=== PATIENT | female | born 1955 | race Caucasian/White ===

== ENCOUNTER 2017-03-17 11:05 | Emergency (ER) | payer OTHER ==
[~2017-03-17] VITALS: Ht 165.1 cm; Wt 94.0 kg
[~2017-03-17 11:05] MED LIST: DICL75 PO; ESCI20TA PO; GABA600T PO; LORTA10 PO; METF-324 PO; OMEP20TA39 PO; PRAM0.12 PO; PRAV80 PO; TRAZ100 PO; ZOLO50TA PO
[2017-03-17 11:06] VITALS: BP 140/80; PULSE 80; RESP 24; TEMP 97.7; O2SAT 96
--- NOTE | 2017-03-17 11:40 | PD ---
HPI Chief Complaint: Fall Time Seen by Provider: 11:37 Travel History International Travel<30 days: No Contact w/Intl Traveler<30days: No Traveled to known affect area: No History of Present Illness HPI 62-year-old female that presents to the ED for evaluation of trip and fall. Per patient she was on a treadmill today and she went faster than she thought she was going and she fell. Per patient she hit her right side of the face and right ribs. She did not lose consciousness. She denies any arm pain or leg pain. No back pain. No prior injuries to this area. She does not take any blood thinners. Denies any numbness, tilling, weakness. No blurry vision or double vision. Pain per patient is 8 out of 10. No allergies to medication. Hasn't seen anybody for this. Injury occurred about 2 hours ago. Per patient most of the pain is on the face. Pain in the ribs is reproducible with touch as well as with deep breaths. No cough or runny nose. No fevers chills or sweats. Patient does have a history of chronic pain for which she takes Lortab. PFSH Past Medical History High Cholesterol: Yes Diabetes: Yes Patient Takes Glucophage: Yes (METFORMIN) : 3 Para: 3 Ovarian Cysts: Yes Past Surgical History Abdominal Surgery: Yes (HERNIA REPAIR ) Cholecystectomy: Yes Social History Alcohol Use: No Tobacco Use: No Substance Use: No Allergies-Medications (Allergen,Severity, Reaction): Coded Allergies: No Known Allergies (Unverified , 03/17/17) Reported Meds & Prescriptions Reported Meds & Active Scripts Active Zoloft (Sertraline HCl) 50 Mg Tab 50 Mg PO DAILY 30 Days Diclofenac Sodium 75 Mg Tab 75 Mg PO BID PRN Reported Gabapentin 600 Mg Tab 600 Mg PO TID Pravachol 80 Mg Tab (Pravastatin Sod) 80 Mg Tab 80 Mg PO DAILY Trazodone Hcl (Trazodone HCl) 100 Mg Tab 100 Mg PO HS Escitalopram Oxalate 20 Mg Tab 20 Mg PO DAILY Pramipexole Dihydrochlori (Pramipexole Dihydrochloride) 0.125 Mg Tab 0.125 Mg PO HS Hm Omeprazole (Omeprazole) 20 Mg Tab 40 Mg PO DAILY Metformin HCl ER (Metformin HCl) 1,000 Mg Tab 1,000 Mg PO BID Lortab 10/325 Tab (Hydrocodone-Acetaminophen) 10 Mg/325 Mg Tab 1 Tab PO Q4H PRN Review of Systems Except as stated in HPI: all other systems reviewed are Neg Physical Exam Narrative GENERAL: SKIN: Warm and dry. HEAD: Atraumatic. Normocephalic. Swelling and bruising noted on the right side of the face. EYES: Pupils equal and round 4 mm reactive to light and accommodation. No scleral icterus. No injection or drainage. ENT: No nasal bleeding or discharge. Mucous membranes pink and moist. Tongue is midline. No uvula deviation. NECK: Trachea midline. No JVD. CARDIOVASCULAR: Regular rate and rhythm. RESPIRATORY: No accessory muscle use. Clear to auscultation. Breath sounds equal bilaterally. GASTROINTESTINAL: Abdomen soft, non-tender, nondistended. Hepatic and splenic margins not palpable. MUSCULOSKELETAL: Extremities without clubbing, cyanosis, or edema. No obvious deformities. Full range of motion of the upper and lower extremities bilaterally. 2+ pulses bilaterally. No cervical, thoracic, lumbar spine tenderness to palpation. Full range of motion lower extremities straight leg test negative. Sensation intact bilaterally. Patient does have reproducible pain on the right ribs. NEUROLOGICAL: Awake and alert. No obvious cranial nerve deficits. Motor grossly within normal limits. Five out of 5 muscle strength in the arms and legs. Normal speech. PSYCHIATRIC: Appropriate mood and affect; insight and judgment normal. Data Data Last Documented VS Vital Signs Date Time Temp Pulse Resp B/P Pulse Ox O2 Delivery O2 Flow Rate FiO2 03/17/17 13:27 78 20 124/59 94 Room Air 03/17/17 11:[address] Brain W/O Iv Contrast(Rout) (03/17/17 11:35) Ct Facial Bones W/O Iv Cont (03/17/17 11:35) Ribs, Uni (W/Exp Cxr-Min 3vw) (03/17/17 11:35) Morphine Inj (Morphine Inj) (03/17/17 11:45) Ondansetron Inj (Zofran Inj) (03/17/17 11:45) Morphine Inj (Morphine Inj) (03/17/17 11:45) Ondansetron Inj (Zofran Inj) (03/17/17 11:45) Hydromorphone Pf Inj (Dilaudid Pf Inj) (03/17/17 13:15) Ketorolac Inj (Toradol Inj) (03/17/17 13:15) Splint Or Brace Apply/Monitor (03/17/17 13:17) Propofol 200 Mg/20 Ml Inj (Diprivan 200 (03/17/17 13:30) MDM Medical Decision Making Medical Screen Exam Complete: Yes Emergency Medical Condition: Yes Medical Record Reviewed: Yes Interpretation(s) Last Impressions Ribs X-Ray 03/17/17 1135 Signed Impressions: Service Date/Time: Friday, March 17, 2017 12:04 - CONCLUSION: No evidence of fracture. Evidence of old granulomatous disease. Abelardo Hennessy MD Maxillofacial CT 03/17/17 1135 Signed Impressions: Service Date/Time: Friday, March 17, 2017 12:10 - CONCLUSION: Right-sided facial bones fractures including the márquez of the maxillary sinus, zygomatic arch, lateral orbital wall, and the orbital floor. Abelardo Hennessy MD Head CT 03/17/17 1135 Signed Impressions: Service Date/Time: Friday, March 17, 2017 12:10 - CONCLUSION: No acute intracranial findings. Right-sided facial bone fractures. Abelardo Hennessy MD Differential Diagnosis Rib fracture versus contusion versus head injury versus facial fracture versus ICH versus contusion versus concussion Narrative Course 62-year-old female that presents to the ED for evaluation of fall. Patient was properly examined and was found to have signs and symptoms concerning for head injury and possible fractures. Imaging was ordered. Patient was given IM morphine and Zofran. Imaging showed fractures of the right facial bones. This was discussed in my attending who recommends his peak with surgeon. I spoke with Dr. Phipps over the phone and was made aware of all findings and he recommends follow-up outpatient. Wants to send him home with pain medication, antibiotics and precautions from sneezing, coughing and not blowing the nose. He was told this and agrees with plan. Patient was given information for Dr. Phipps. Patient will be given Percocet for her pain but she was told not to use this if she is cannot take the Lortab. She needs to follow with her pain specialist as well. Follow with Dr. Gill. Patient was given prescription for Augmentin and diclofenac sodium. Ice. Follow with PCP. See ED for worsening symptoms. Diagnosis Primary Impression: Multiple facial bone fractures Qualified Code: S02.92XA - Multiple facial bone fractures, closed, initial encounter Referrals: Salazar Puente DDS Patient Instructions: General Instructions, Narcotic given in the ED Additional Instructions: Take medications as prescribed. Follow-up with PCP. See ED for any worsening symptoms. Do not drink or drive while taking pain medication. Apply ice or heat as needed for pain. Do not take the Lortab if you are taking the Percocet. Med/Other Pt SpecificInfo: Prescription(s) given Scripts Diclofenac Sodium DR 75 Mg Tabdr75 Mg PO BID PRN (PAIN SCALE 1 TO 10) #20 TAB Prov:Stephen William MD 03/17/17 Oxycodone-Acetaminophen (Percocet)10-325 mg Tab1 Tab PO Q6H PRN (PAIN) #15 TAB Ref 0 Prov:Stephen William MD 03/17/17 Amoxicillin-Clavulanate (Augmentin)875-125 mg Xfw362 Mg PO BID 10 Days not for use in CrCl <30 ml/min. Prov:Stepehn William MD 03/17/17 Disposition: 01 DISCHARGE HOME Condition: Stable Alfonso Barber March 17, 2017 11:40
[2017-03-17] MEDS ORDERED: MORPHINE SULFATE 4 MG/ML INJ IM ONE (11:45)
[2017-03-17] MEDS ORDERED: MORPHINE SULFATE 4 MG/ML INJ IV PUSH ONE (11:45)
[2017-03-17] MEDS ORDERED: ONDANSETRON HCL 4 MG/2 ML VIAL IM ONE (11:45)
[2017-03-17] MEDS ORDERED: ONDANSETRON HCL 4 MG/2 ML VIAL IV PUSH ONE (11:45)
[2017-03-17] MEDS ORDERED: KETOROLAC TROMETHAMINE 60 MG/2 ML (IM) VIAL IM ONE (13:15)
[2017-03-17] MEDS ORDERED: HYDROmorphone HCL PF 1 MG/ML VIAL IM ONE (13:15)
--- NOTE | 2017-03-17 13:15 | RADRPT ---
EXAM DATE/TIME: 03/17/2017 12:04 [facility] COMPARISON: No previous studies available for comparison. INDICATIONS : Right rib pain post fall off treadmill MEDICAL HISTORY : None. SURGICAL HISTORY : Cholecystectomy. ENCOUNTER: Initial ACUITY: 1 day PAIN SCORE: 8/10 LOCATION: Right chest FINDINGS: Multiple views of the right ribs were performed. There is no evidence of displaced fracture. No heather tructive lesions or areas of periosteal thickening are seen. Expiratory view of the chest is negativ e for pneumothorax. The mediastinal structures are midline. Calcified granulomas in the lungs and c alcified right paratracheal lymph node. CONCLUSION: No evidence of fracture. Evidence of old granulomatous disease. Abelardo Hennessy MD on March 17, 2017 at 13:12 Board Certified Radiologist. This report was verified electronically.
--- NOTE | 2017-03-17 13:16 | RADRPT ---
EXAM DATE/TIME: 03/17/2017 12:10 [facility] COMPARISON: No previous studies available for comparison. INDICATIONS : Fall on treadmill today, abrasions to face. RADIATION DOSE: 34.27 CTDIvol (mGy) MEDICAL HISTORY : None SURGICAL HISTORY : Cholecystectomy. ENCOUNTER: Initial ACUITY: 1 day PAIN SCALE: 6/10 LOCATION: Bilateral head TECHNIQUE: Multiple contiguous axial images were obtained of the head. Using automated exposure control and adj ustment of the mA and/or kV according to patient size, radiation dose was kept as low as reasonably a chievable to obtain optimal diagnostic quality images. FINDINGS: CEREBRUM: The ventricles are normal for age. No evidence of midline shift, mass lesion, hemorrhage or acute in farction. No extra-axial fluid collections are seen. POSTERIOR FOSSA: The cerebellum and brainstem are intact. The 4th ventricle is midline. The cerebellopontine angle i s unremarkable. EXTRACRANIAL: Right-sided facial bone fractures will be described on facial bone CT report SKULL: The calvaria is intact. No evidence of skull fracture. CONCLUSION: No acute intracranial findings. Right-sided facial bone fractures. Abelardo Hennessy MD on March 17, 2017 at 13:13 Board Certified Radiologist. This report was verified electronically.
--- NOTE | 2017-03-17 13:20 | RADRPT ---
EXAM DATE/TIME: 03/17/2017 12:10 [facility] COMPARISON: No previous studies available for comparison. INDICATIONS : Fall on treadmill today, abrasions to face. RADIATION DOSE: 56.72 CTDIvol (mGy) MEDICAL HISTORY : None SURGICAL HISTORY : Cholecystectomy. ENCOUNTER: Initial ACUITY: 1 day PAIN SCORE: 7/10 LOCATION: Right periorbital face TECHNIQUE: Volumetric scanning of the facial bones was performed. Using automated exposure control and adjustme nt of the mA and/or kV according to patient size, radiation dose was kept as low as reasonably achiev able to obtain optimal diagnostic quality images. FINDINGS: Fracture of the anterior wall right maxillary sinus with 3 mm depression. 6 mm medial to lateral bony overlap. Fracture of the posterior lateral wall right maxillary sinus with 4 mm bony overlap. Nondis placed right zygomatic arch fracture. Nondisplaced right lateral orbital wall fracture with mild barrett ling nondisplaced right orbital floor fracture. No evidence of extraocular muscle displacement. Hemor rhagic products seen within the right maxillary sinus. Globes are symmetric and within normal limits. CONCLUSION: Right-sided facial bones fractures including the márquez of the maxillary sinus, zygomatic arch, latera l orbital wall, and the orbital floor. Abelardo Hennessy MD on March 17, 2017 at 13:15 Board Certified Radiologist. This report was verified electronically.
[2017-03-17 13:27] VITALS: BP 124/59; PULSE 78; RESP 20; O2SAT 94
[2017-03-17] MEDS ORDERED: PROPOFOL 200 MG/20 ML AMP IV ONE (13:30)
[2017-03-17] MEDS ORDERED: PERC10TA27 PO (13:36)
[2017-03-17] MEDS ORDERED: AUGM875T PO (13:36)
[2017-03-17] MEDS ORDERED: DICL75TA PO (13:36)
== END 2017-03-17 14:25 | disposition home or self-care (01) ==
LOC: NEPD 11:05
DX: S02.40EA Zygomatic fracture, right side, initial encounter for closed fracture (principal); S02.81XA Fracture of other specified skull and facial bones, right side, initial encounter for closed fracture; S02.40CA Maxillary fracture, right side, initial encounter for closed fracture; W01.0XXA Fall on same level from slipping, tripping and stumbling without subsequent striking against object, initial encounter; Y93.A1 Activity, exercise machines primarily for cardiorespiratory conditioning
CPT/HCPCS: 70450; 70486; 71101; 96372; 96374; 99284; J1170; J1885; J2270; J2405